=== PATIENT | female | born 1970 | race American Indian/Alaskan Native ===

== ENCOUNTER 2018-10-30 08:06 | Day surgery (SDC) | payer BC ==
[2018-10-30] MEDS ORDERED: Lidocaine 1% Inj (20ml) ONE (09:45)
[2018-10-30] MEDS ORDERED: Propofol 10 mg/ml Inj (20 ML) ONE (09:45)
[2018-10-30] MEDS ORDERED: Sodium Chloride 0.9% 1,000 ML IV SCH (10:30)
[2018-10-30 11:17] VITALS: BP 119/75; PULSE 57; RESP 16; TEMP 98.4; O2SAT 100
== END 2018-10-30 11:37 | disposition home or self-care (01) ==
LOC: ENDO 08:06
PROVIDERS: ATTEND Internal Medicine Gastroenterology
DX: Z12.11 Encounter for screening for malignant neoplasm of colon (principal); D12.4 Benign neoplasm of descending colon; K62.89 Other specified diseases of anus and rectum; K64.0 First degree hemorrhoids
CPT/HCPCS: 45385; 84703; 88305; J2704; J7030; J7040